=== PATIENT | male | born 1990 | race Caucasian/White ===

== ENCOUNTER → 2021-02-05 | Outpatient (CLI) | payer OTHER ==
--- NOTE | 2021-02-05 10:24 | KCIC ---
MRI THORACIC SPINE WO 02/05/2021 9:05 AM INDICATION: Back pain COMPARISON: None available. TECHNIQUE: Multiplanar, multisequence MR imaging of the thoracic spine was performed without intrave nous contrast. FINDINGS: Alignment of the thoracic spine is normal. Vertebral body heights are maintained. Schmorl's nodes are identified involving the endplates of T5-T12 without significant height loss. Disc desiccation is id entified at T5-T6 through T10-T11. Thoracic spinal cord signal intensity is normal in all sequences. There is mild disc bulge at T5-T6 without significant neuroforaminal or spinal canal stenosis. There is mild disc bulge at T6-T7 without significant neuroforaminal or spinal canal stenosis. Mild facet a rthropathy. Thoracic aorta is normal in course and caliber as visualized. Bilateral renal extrarenal pelvis, grea ter than left. No suspicious renal mass. Lungs are otherwise clear. IMPRESSION: No acute fracture or malalignment of the thoracic spine. Schmorl's nodes are identified involving T5 there T12 without significant height loss. Electronically signed by: Caroline Cordova MD (02/05/2021 10:21 AM) [facility]
== END ==
LOC: KCIC MRI 08:56
PROVIDERS: ATTEND Nurse Practitioner Family
DX: M47.814 Spondylosis without myelopathy or radiculopathy, thoracic region (principal); M51.44 Schmorl's nodes, thoracic region; M54.9 Dorsalgia, unspecified
CPT/HCPCS: 72146

== ENCOUNTER → 2021-02-27 | Outpatient (CLI) | payer OTHER ==
[~2021-02-27] MED LIST: BUPIVACAINE MPF 0.25% 10 ML VIAL. ONE; CYCL10TA2 PO; IBUP-1060 PO; TRAM50TA PO; methylPREDNISolone ACETATE 40 MG/ML VIAL. ONE
--- NOTE | 2021-02-27 10:26 | PDOC4 ---
Procedure Note: Procedure Note: Patient was consented for trigger point injections. Risk were discussed including but not limited to bleeding infection possibility of intravascular injection sequelae spread local anesthetic numbness pneumothorax side effects of steroid medication portals regarding pain control. Patient understands wished to proceed. Under sterile prep and drape patient sitting position, trigger points were identified in the bilateral trapezius, bilateral rhomboid musculature, left thoracic paraspinous musculature, and left lumbar paraspinous musculature. Using 25-gauge needle after negative aspiration each injection site total of 11 cc 0.25% bupivacaine and total of 40 mg Depo-Medrol was then injected. Patient tolerated procedure well had no complications. ANDREW MIRANDA MD Feb 27, 2021 10:26
--- NOTE | 2021-02-27 10:26 | PDOC1 ---
INITIAL PAIN CONSULT DATE OF SERVICE: DOS: DATE: 02/27/21 TIME: 10:18 CHIEF COMPLAINT: Chief Complaint: Mid upper back pain and left low back pain HISTORY OF PRESENT ILLNESS: 30-year-old male presents with history of pain in the mid back upper back and left low back for many years about 6 or 7 years none result of any specific injury or accident that he is aware but increasing with time. 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 Patient reports pain in the bilateral upper back right equal to left and the left low back but no pain on the right low back patient reports is constant sharp shooting can be stabbing in the left low back radiating into the side on the le ft side more than the right cramping and burning at times patient reports is worse with repetitive motions changing positions spitting difficulty sleeping as it wakes him from sleep about 2-3 times a night patient reports is not effective bowel bladder control but does affect is ability to walk although standing still feels better patient reports he had physical therapy done chiropractic treatment also acupuncture and exercise patient currently doing with none of these have been significantly decreasing the pain. Patient take ibuprofen and tramadol as well as Flexeril again none of the significantly decreasing the pain as well. Did have MRI scan of the thoracic spine showing disc desiccation at T5-6 through T10-11 with thoracic spinal cord signal intensity normal in all sequences mild disc bulge at T5-6 without significant neuroforaminal spinal canal stenosis and mild disc bulge at T6-7 without significant neuroforaminal or spinal canal stenosis. Lumbar spine MRI scan is normal as well. Patient rates his disability of 0-10 10 being the as 6 with family responsibilities social activity self-care and life support activities 10 with recreation sexual activity and occupational activity. PAST MEDICAL HISTORY: PMH: History of arthritis PREVIOUS SURGERIES: Past Surgical Hx: None CURRENT MEDICATIONS: Current Meds: Active Scripts Medications Dose Route/Sig Max Daily Dose Days Date Category Cyclobenzaprine Hcl 10 Mg Tablet 1 Tab PO TID 02/27/21 Reported Tramadol Hcl 50 Mg Tablet 50 Mg PO BID PRN 02/27/21 Reported Ibuprofen 800 Mg Tablet 800 Mg PO PRN Q6HRS PRN 02/27/21 Reported ALLERGIES; Allergies: Coded Allergies: No Known Drug Allergies (Unverified , 02/27/21) FAMILY HISTORY: Family Hx: Degenerative disc disease, cancers SOCIAL HISTORY: Social Hx: Patient is alcohol about 12 beverages a week does not smoke says any illegal illicit recreational drugs is lives with spouse and 5 children living at home lives locally in [facility], 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 REVIEW OF SYSTEMS: ROS: Positive for those items mentioned in history of present illness, all systems are reviewed, otherwise negative ,and are complete full and well-documented on patient's chart. PHYSICAL EXAM: VS: Blood pressure is 131/80 pulse 78 respirations 16 temperature 98.3 F height 5 foot 11 inches weight 196 pounds PE: PHYSICAL EXAMINATION: . GENERAL: The patient is awake, alert, oriented, appropriate, very pleasant in demeanor. HEENT: Shows normocephalic, atraumatic. Extraocular movements are intact and symmetrical. Oral cavity: Mucous membranes moist and pink. Dentition is intact. NECK: Shows anterior throat supple without palpable lymphadenopathy noted. Swallow reflex symmetrical. CHEST: Shows normal on inspection. Breath sounds are clear bilaterally, no rales rhonchi wheezes auscultated. HEART: Shows S1, S2 clear. No murmurs auscultated. ABDOMEN: Soft, nontender, nondistended. No palpable organomegaly is noted. No rebound or guarding demonstrated. BACK: Shows spine grossly in the midline. Normal-appearing cervical lordotic curvature. There is slightly increased thoracic kyphosis, some minor flattening of the lumbar lordotic curvature. Thoracic paraspinous muscles show symmetrical inspection with palpation some very firm ropelike musculature in the inferior aspect of the superior trapezius also the rhomboid distribution of the trapezius musculature bilaterally very firm ropelike musculature medial to the medial scapula and lateral to the spinous processes very firm very tender with palpation especially on the left side but without specific radiation this is true into the lower thoracic distribution of the paraspinous muscular as well also the left lumbar paraspinous muscles are very firm ropelike musculature on the left side only in the mid to upper distribution of the lumbar paraspinous muscles consistent with trigger point areas of musculature again without radiation. The patient has good rotational motion of the lumbar spine, both laterally as well as extension and flexion without significant difficulty. No tenderness over the spinous processes, sacrum or sacroiliac regions. EXTREMITIES: Lower extremities show deep tendon reflexes 2+ in the patellar and tendo calcaneus tendons. Motor exam is 5 on a scale of 5 with right dorsiflexion, extension, quadriceps and hamstring flexion and 5/5 on the left. Peripheral pulses are 2+ posterior tibial. No peripheral edema is noted bilaterally. Lower extremities are warm and dry to touch, equal in color and appearance. Straight leg raise noted to be negative bilaterally. Gaenslen's and Bala's maneuvers are negative bilateral as well. The patient is able to stand, stand on her toes that difficulty loss of balance walks with a normal- appearing gait does not appear to favor the right or left lower extremity not use any assistive devices. SKIN: Shows warm and dry, good turgor. No edema. No sores, rashes or bruising throughout. IMPRESSION: Impression: 30-year-old male with long history mid back upper back pain, and left lower back pain. MRI scan thoracic and lumbar spine as noted History of arthritis Plan: Options were discussed with the patient, including conservative management is continued physical therapies interventional techniques. Patient elects interventional techniques. We discussed trigger point injections of the identified musculature bilateral trapezius bilateral rhomboid bilateral thoracic paraspinous muscle and left lumbar paraspinous musculature. Patient would like to proceed. Risk were discussed including but not limited to bleeding infection possibility of intravascular injection sequelae spread local anesthetic numbness pneumothorax side effects steroid medication portals regarding pain control. Patient understands wishes to proceed. Patient will return to the clinic in approximate 2 weeks for follow-up, was counseled as to return appointment activity level and side effects to be aware of. Under sterile prep and drape patient sitting position, trigger points were identified in the bilateral trapezius, bilateral rhomboid musculature, left thoracic paraspinous musculature, and left lumbar paraspinous musculature. Using 25-gauge needle after negative aspiration each injection site total of 11 cc 0.25% bupivacaine and total of 40 mg Depo-Medrol was then injected. Patient tolerated procedure well had no complications. ANDREW MIRANDA MD Feb 27, 2021 10:26
== END | disposition home or self-care (01) ==
LOC: PNCL 09:26
PROVIDERS: ATTEND Anesthesiology
DX: M54.5 Low back pain (principal); M79.18 Myalgia, other site; M19.90 Unspecified osteoarthritis, unspecified site; Z79.899 Other long term (current) drug therapy
CPT/HCPCS: 20553; J1030; J3490